=== PATIENT | male | born 1965 | race Caucasian/White ===

== ENCOUNTER 2017-02-24 14:49 | Emergency (ER) | payer OTHER ==
[2017-02-24 15:14] VITALS: BP 137/83
--- NOTE | 2017-02-24 15:25 | UC ---
Back Pain HPI - HPI Summary HPI Summary: 52 year old male complains of right back pain secondary to a 10 foot fall from a ladder. I will send him to the ER. - History of Current Complaint Chief Complaint: UCBackPain Stated Complaint: BACK INJURY FROM FALL Time Seen by Provider: 02/24/17 15:18 - Allergies/Home Medications Allergies/Adverse Reactions: Allergies Allergy/AdvReac Type Severity Reaction Status Date / Time No Known Allergies Allergy Verified 02/24/17 16:09 PMH/Surg Hx/FS Hx/Imm Hx Previously Healthy: Yes - Surgical History Surgical History: None - Family History Known Family History: Positive: None - Social History Alcohol Use: None Substance Use Type: None Smoking Status (MU): Never Smoked Tobacco Review of Systems Constitutional: Negative Skin: Other - RIGHT LOWER BACK ECCYMOSIS Eyes: Negative ENT: Negative Respiratory: Negative Cardiovascular: Negative Gastrointestinal: Negative Genitourinary: Negative Motor: Negative Neurovascular: Negative Musculoskeletal: Myalgia, Other: - RIGHT LOWER BACK PAIN Neurological: Negative Psychological: Negative All Other Systems Reviewed And Are Negative: Yes Physical Exam Triage Information Reviewed: Yes Vital Signs: Initial Vital Signs Temp 36.8 C 02/24/17 15:10 Pulse 102 02/24/17 15:10 Resp 18 02/24/17 15:10 BP 137/83 02/24/17 15:10 Pulse Ox 99 02/24/17 15:10 Eye Exam: Normal ENT Exam: Normal Dental Exam: Normal Neck exam: Normal Neck: Positive: 1 Respiratory Exam: Normal Cardiovascular Exam: Normal Abdominal Exam: Normal Musculoskeletal: Positive: Other: - RIGHT LOWER BACK PAIN Neurological Exam: Normal Psychological Exam: Normal Skin: Positive: Other - RIGHT LOWER BACK ECCYMOSIS Back Pain Course/Dx - Differential Dx/Diagnosis Provider Diagnoses: UPPER BACK SPASM Discharge - Discharge Plan Condition: Stable Disposition: AGAINST MEDICAL ADVICE Patient Education Materials: Low Back Strain (ED) Referrals: Nivia Mariee MD [Medical Doctor] -
== END 2017-02-24 15:35 | disposition left against medical advice (07) ==
LOC: UCEAST 14:49
DX: M54.9 Dorsalgia, unspecified (principal); W11.XXXA Fall on and from ladder, initial encounter; Y93.9 Activity, unspecified; Y92.9 Unspecified place or not applicable; Y99.9 Unspecified external cause status
CPT/HCPCS: 99212; G0463

== ENCOUNTER 2017-02-24 15:57 | Emergency (ER) | payer OTHER ==
[2017-02-24] MEDS ORDERED: Ibuprofen TAB* 600 MG PO ONE (18:05)
--- NOTE | 2017-02-24 19:27 | RAD ---
INDICATION: Back and pelvic pain after falling 10 feet off of a ladder. COMPARISON: None. TECHNIQUE: Noncontrast CT examination of the thoracic spine, lumbar spine and pelvis. Axial images were acquired and sagittal and coronal reformats were created and independently analyzed. FINDINGS: There are multilevel degenerative changes of the thoracic spine including loss of intervertebral disc height. No definite vertebral body compression fracture is identified. The spinous processes are intact. There is a slightly displaced fracture involving the right T12 rib (axial image 135 and sagittal image 24). There are displaced fractures of the right L2 (axial image 32), L3 (axial image 46) and L4 (axial image 59) transverse processes. The vertebral bodies are otherwise intact. Mild degenerative changes of the lumbar spine also include loss of intervertebral disc height. There is no hyperdense material in the thecal canal to indicate acute injury thecal hemorrhage. The sacrum is intact. The bones of the pelvis are intact. The SI joints are appropriately preserved. The bones of the hips are intact. The visualized soft tissues including portions of the small and large bowel are grossly normal. There is no hyperdense free intraperitoneal fluid or retroperitoneal fluid to indicate solid organ laceration or retroperitoneal hematoma, respectively. Incidentally noted are vessel ectomy clips. IMPRESSION: 1. There are acute minimally displaced fractures involving the right 12th rib and the right lateral processes of L2, L3 and L4. The vertebral bodies otherwise appear to be intact. 2. No displaced fracture involving the pelvis or hips. 3. There is no hyperdense free fluid in the peritoneal cavity or hyperdense fluid in the retroperitoneum to indicate acute solid organ injury or retroperitoneal hematoma, respectively.
[2017-02-24] MEDS ORDERED: Dexamethasone IV* 4 MG/ML 1 ML (4 MG) IV SLOW PU ONE (19:52)
[2017-02-24] MEDS ORDERED: Orphenadrine Citrate IV* 30 MG/ML 2 ML VIAL IV ONE (19:52)
--- NOTE | 2017-02-24 20:00 | ED ---
Adult Trauma - HPI Summary HPI Summary: 52 male presents from with complaints of lower back pain after sustaining a fall approximately 10 feet from a ladder around 2 pm this afternoon. Patient states he landed on the ladder that fell out from underneath him more on his right side of his back. Denies hitting his head or LOC. No extremity injuries or pain. Denies neck pain. Only complaint is lower back pain. Has not taken any medications other than the ibuprofen given to him at ED. Patient denies lacerations however admits to some abrasion on right lower back and right arm. No nausea, vomiting, visual changes, chest pain, difficulty breathing, abdominal pain or headache. Was ambulatory at scene. Describes lower back pain as pressure and stiff with a dull ache. Hurts more with movement of changing positions. Able to bear weight and walk. Denies saddle anesthesia, numbness/ tingling, weakness and bladder/bowel incontinence. No medical problems other than migraines in which he takes amitryptyline for. - History of Current Complaint Hx Obtained From: Patient Mechanism of Injury: Fall - from 10 feet, off ladder Ambulatory at the Scene: Yes Loss of Consciousness: no loss of consciousness Force: Medium Onset/Duration: Started Hours Ago, Traumatic, Still Present Onset of Pain: Immediate Onset Severity: Moderate Current Severity: Moderate Pain Intensity: 4 Pain Scale Used: 0-10 Numeric Location: Back - lower, more on right side Character: Aching, Pressure Aggravating Factor(s): Movement Alleviating Factor(s): Rest Associated Signs & Symptoms: Positive: Negative <Adia Aburto - Last Filed: 02/25/17 00:27> <Vannessa Benitez - Last Filed: 02/26/17 08:03> - History of Current Complaint Chief Complaint: EDBackInjuryPain Stated Complaint: BACK INJURY Time Seen by Provider: 02/24/17 18:56 - Allergy/Home Medications Allergies/Adverse Reactions: Allergies Allergy/AdvReac Type Severity Reaction Status Date / Time No Known Allergies Allergy Verified 02/24/17 16:09 PMH/Surg Hx/FS Hx/Imm Hx Endocrine/Hematology History: Denies: Hx Diabetes, Hx Thyroid Disease Cardiovascular History: Denies: Hx Hypertension Respiratory History: Denies: Hx Asthma, Hx Chronic Obstructive Pulmonary Disease (COPD) GI History: Denies: Hx Ulcer Neurological History: Reports: Hx Migraine - Surgical History Surgery Procedure, Year, and Place: n/a - Immunization History Immunizations Up to Date: Yes Infectious Disease History: No Infectious Disease History: Denies: Hx Hepatitis, Hx Human Immunodeficiency Virus (HIV), Traveled Outside the [place] in Last 30 Days - Family History Known Family History: Positive: None - Social History Alcohol Use: None Substance Use Type: Reports: None Smoking Status (MU): Never Smoked Tobacco <ShirinradhaMariannaAdia - Last Filed: 02/25/17 00:27> Review of Systems Constitutional: Negative Eyes: Negative ENT: Negative Cardiovascular: Negative Respiratory: Negative Gastrointestinal: Negative Positive: Arthralgia, Myalgia - lower back Positive: Other - abrasions Neurological: Negative All Other Systems Reviewed And Are Negative: Yes <Marianna Aburtosa - Last Filed: 02/25/17 00:27> Physical Exam Triage Information Reviewed: Yes Vital Signs On Initial Exam: Initial Vitals Temp Pulse Resp BP Pulse Ox 98.4 F 95 16 107/84 96 02/24/17 16:10 02/24/17 16:10 02/24/17 16:10 02/24/17 16:10 02/24/17 16:10 Vital Signs Reviewed: Yes Appearance: Positive: Well-Appearing, Pain Distress - mild with movement Skin: Positive: Warm, Skin Color Reflects Adequate Perfusion, Dry, Other - minor abrasions to right lower back/flank and right forearm, no FB, no bleeding. Negative: Cold, Numb, Cyanosis @, Pale, Erythema @ Head/Face: Positive: Normal Head/Face Inspection. Negative: Temporal Artery Tenderness, TMJ Tenderness, Cephalohematoma Eyes: Positive: Normal, EOMI, GROVER, Conjunctiva Clear ENT: Positive: Normal ENT inspection, Hearing grossly normal, Pharynx normal, TMs normal, Other - did not bite tongue, no racoon eyes, battles signs or facial bony tenderness. Negative: Nasal congestion, Nasal drainage, Tonsillar swelling Dental: Negative: Percussion Tenderness @, Dental Fracture @ Neck: Positive: Supple, Nontender, No Lymphadenopathy Respiratory/Lung Sounds: Positive: Clear to Auscultation, Breath Sounds Present , Other - no pain with deep inhalation. Negative: Rales, Rhonchi, Wheezes Cardiovascular: Positive: Normal, RRR, Pulses are Symmetrical in both Upper and Lower Extremities - 2+ radial and pedal. Negative: Murmur, Rub, Leg Edema Left , Leg Edema Right Abdomen Description: Positive: Nontender, No Organomegaly, Soft, Other: - no bruising. Negative: Bruit, CVA Tenderness (R), CVA Tenderness (L), Distended, Guarding, Peritoneal Signs, Pulsatile Mass Bowel Sounds: Positive: Present Musculoskeletal: Positive: Normal, Strength/ROM Intact, Pain @ - on palpation of L1-L6 of lower back, Other - no pain on palpation of extremities, clavicle, cervical, hips. no obvious signs of deformity or crepitus, step off. no ecchymosis or edema. Negative: Limited @, Interruption @, Edema Left, Edema Right Neurological: Positive: Normal - memory and concentration intact, Sensory/Motor Intact - sensation intact, Alert, Oriented to Person Place, Time, CN Intact II- III, Reflexes Intact, NV Bundle Intact Distally, Normal Gait, Finger to Nose - normal, Facial Symmetry, Speech Normal Psychiatric: Positive: Affect/Mood Appropriate - [place] Coma Scale Best Eye Response: 4 - Spontaneous Best Motor Response: 6 - Obeys Commands Best Verbal Response: 5 - Oriented <Adia Aburto - Last Filed: 02/25/17 00:27> Vital Signs On Initial Exam: Initial Vitals Temp Pulse Resp BP Pulse Ox 98.4 F 95 16 107/84 96 02/24/17 16:10 02/24/17 16:10 02/24/17 16:10 02/24/17 16:10 02/24/17 16:10 <Vannessa Benitez - Last Filed: 02/26/17 08:03> Diagnostics - Vital Signs Vital Signs Temp Pulse Resp BP Pulse Ox 02/24/17 17:52 97.3 F 95 16 107/84 98 02/24/17 16:10 98.4 F 95 16 107/84 96 - Laboratory Result Diagrams: 02/24/17 21:10 02/24/17 22:12 Lab Statement: Any lab studies that have been ordered have been reviewed, and results considered in the medical decision making process. - CT lumbar, thoracis, pelvis CT Interpretation: Positive (See Comments) - 1. There are acute minimally displaced fractures involving the right 12th rib and the right lateral processes of L2, L3 and L4. The vertebral bodies otherwise appear to be intact. 2. No displaced fracture involving the pelvis or hips. 3. There is no hyperdense free fluid in the peritoneal cavity or hyperdense fluid in the retroperitoneum to indicate acute solid organ injury or retroperitoneal hematoma , respectively. cervical CT Interpretation: No Acute Changes - no fracture. CT Interpretation Completed By: Radiologist chest/abd/pelvis CT Interpretation: No Acute Changes - fractures of the right 12th rib and right second, third and fourth transverse processses of lumbar spine without paraspinal hematoma. no visceral injury in chest abdomen or pelvis. fatty liver. CT Interpretation Completed By: Radiologist <Adia Aburto - Last Filed: 02/25/17 00:27> - Vital Signs Vital Signs Temp Pulse Resp BP Pulse Ox 02/25/17 01:18 98.6 F 91 16 128/80 100 02/24/17 23:39 98.8 F 90 18 130/75 97 02/24/17 17:52 97.3 F 95 16 107/84 98 02/24/17 16:10 98.4 F 95 16 107/84 96 - Laboratory Lab Results: Lab Results 02/24/17 02/24/17 02/24/17 Range/Units 21:10 21:10 22:12 WBC 10.3 (3.5-10.8) 10^3/ul RBC 5.15 (4.0-5.4) 10^6/ul Hgb 14.8 (14.0-18.0) g/dl Hct 45 (42-52) % MCV 88 (80-94) fL MCH 29 (27-31) pg MCHC 33 (31-36) g/dl RDW 14 (10.5-15) % Plt Count 169 (150-450) 10^3/ul MPV 9 (7.4-10.4) um3 Neut % (Auto) 72.3 (38-83) % Lymph % (Auto) 20.3 L (25-47) % [place] % (Auto) 6.2 (1-9) % Eos % (Auto) 0.7 (0-6) % Baso % (Auto) 0.5 (0-2) % Absolute Neuts (auto) 7.4 (1.5-7.7) 10^3/ul Absolute Lymphs (auto) 2.1 (1.0-4.8) 10^3/ul Absolute Monos (auto) 0.6 (0-0.8) 10^3/ul Absolute Eos (auto) 0.1 (0-0.6) 10^3/ul Absolute Basos (auto) 0.1 (0-0.2) 10^3/ul Absolute Nucleated RBC 0 10^3/ul Nucleated RBC % 0 Sodium 133 (133-145) mmol/L Potassium TNP 3.8 Chloride 102 (101-111) mmol/L Carbon Dioxide 25 (22-32) mmol/L Anion Gap 6 (2-11) mmol/L BUN 19 (6-24) mg/dL Creatinine 1.20 H (0.67-1.17) mg/dL Est GFR ( Amer) 82.1 (>60) Est GFR (Non-Af Amer) 63.8 (>60) BUN/Creatinine Ratio 15.8 (8-20) Glucose 100 (70-100) mg/dL Calcium 9.3 (8.6-10.3) mg/dL Total Bilirubin 1.20 H (0.2-1.0) mg/dL AST TNP 37 ALT 57 H (7-52) U/L Alkaline Phosphatase 60 (34-104) U/L Total Protein 7.4 (6.4-8.9) g/dL Albumin 4.5 (3.2-5.2) g/dL Globulin 2.9 (2-4) g/dL Albumin/Globulin Ratio 1.6 (1-3) Result Diagrams: 02/24/17 21:10 02/24/17 22:12 Lab Statement: Any lab studies that have been ordered have been reviewed, and results considered in the medical decision making process. <Vannessa Benitez - Last Filed: 02/26/17 08:03> Re-Evaluation - Re-Evaluation First Eval Re-Evaluation Time: 21:06 Change: Improved - had some relief after medications, awaiting CT of abd/chest/ pelvis. aware of current lab results and plan Second Eval Re-Evaluation Time: 22:40 Change: Unchanged Comment: patient still feeling good. IV access was difficult and the reason for his long stay for the IV contrast CT. Updated on rest of stay. <Adia Aburto - Last Filed: 02/25/17 00:27> Adult Trauma Course/Dx - Course Course Of Treatment: labs obtained. given ibuprofen, norflex and dexamethasone for pain, stiffness and inflammation. CT of lumbar and thoracic spine, chest, abd, pelvis obtained due to RAMESH and traumatic findings. Did not hit head and no LOC. No neurologic deficits noted. Lumbar transverse process fractures L2 L3 L4 and 12th rib fracture noted. Attempted to find brace however do not have access. Spoke with Dr Moser and trauma ER at [facility] with Dr Escudero who stated no other work up or treatment changes. Follow up neurosurgery. Given pain management to take at home, rest, ice. No need for spirometer due to patient not having difficulty taking deep inspirations. Aware of worsening signs and symptoms. Refrain from physical activity. Follow up PCP. - Diagnoses Differential Diagnosis/HQI/PQRI: Positive: Abrasion(s), Contusion(s), Fracture, Dislocation, Hematoma(s), Laceration(s), Sprain, Strain - Physician Notifications Discussed Care Of Patient With: Dr Escudero, [facility] Time Discussed With Above Provider: 00:00 Instructed by Provider To: Have Pt Call For Appt. - with neurosurgery <Adia Aburto - Last Filed: 02/25/17 00:27> <Vannessa Benitez - Last Filed: 02/26/17 08:03> - Diagnoses Provider Diagnoses: Fracture of transverse process of lumbar vertebra, Right rib fracture Discharge <dAia Aburto - Last Filed: 02/25/17 00:27> <Vannessa Benitez - Last Filed: 02/26/17 08:03> - Discharge Plan Condition: Stable Disposition: HOME Prescriptions: oxyCODONE/Acetamin 5/325 MG* [Percocet 5/325 TAB*] 1 tab PO Q4H PRN #30 tab MDD 4 PRN Reason: Pain Patient Education Materials: Thoracolumbar Fracture (ED), Rib Fracture (ED) Referrals: Elsy Capone MD [Primary Care Provider] - Papa Hunt MD [Medical Doctor] - Additional Instructions: Take prescribed medication as directed. In between doses you may bridge with naproxen 250mg (400mg if pain is un-tolerable). Ice and rest. Be conscious of your fractures. Refrain from strenuous activity and exercise. Follow up and make an appointment with resume specialist. If new symptoms develop such as numbness/tingling, weakness, bladder/bowel incontinence or worsening symptoms please seek medical attention immediately. Attestation Statement User Type: Provider - I was available for consult. This patient was seen by the [facility]. The patient was not presented to, seen by, or examined by me. -Mauri <Vannessa Benitez - Last Filed: 02/26/17 08:03>
[2017-02-24 21:34] LABS: ALT 57 U/L (7-52); Albumin 4.5 g/dL (3.2-5.2); Alkaline Phosphatase 60 U/L (34-104); BUN/Creatinine Ratio 15.8 (8-20); Blood Urea Nitrogen 19 mg/dL (6-24); CO2 Carbon Dioxide 25 mmol/L (22-32); Calcium 9.3 mg/dL (8.6-10.3); Chloride 102 mmol/L (101-111); EGFR African American 82.1 (>60); EGFR Non-African American 63.8 (>60); Globulin 2.9 g/dL (2-4); Glucose 100 mg/dL (70-100); Hematocrit 45 % (42-52); Hemoglobin 14.8 g/dl (14.0-18.0); Mean Corpuscular HGB Conc 33 g/dl (31-36); Mean Corpuscular Hemoglobin 29 pg (27-31); Mean Corpuscular Volume 88 fL (80-94); Mean Platelet Volume 9 um3 (7.4-10.4); Red Blood Count 5.15 10^6/ul (4.0-5.4); Red Cell Distribution Width 14 % (10.5-15); Sodium 133 mmol/L (133-145); Total Protein 7.4 g/dL (6.4-8.9); White Blood Count 10.3 10^3/ul (3.5-10.8)
[2017-02-24 21:39] LABS: Anion Gap 6 mmol/L (2-11)
[2017-02-24] MEDS ORDERED: Iohexol 300* (CONTRAST) 10 ML SDV IV ONE (22:34)
[2017-02-25] MEDS ORDERED: HYDROcodone/ACETAMIN 5-325 MG* 1 TAB PO ONE (00:13)
[2017-02-25 01:18] VITALS: BP 128/80
--- NOTE | 2017-02-25 12:17 | RAD ---
INDICATION: Neck pain after falling approximately 10 feet from a ladder COMPARISON: None. TECHNIQUE: Axial source images were acquired with coronal and sagittal reformatting. FINDINGS: The cervical vertebrae are normally aligned. There is no fracture or focal bony lesion. The canal and foramina appear widely patent. The odontoid and the atlantodental interval are normal. The prevertebral soft tissues appear normal. Degenerative changes of the cervical spine include loss of intervertebral disc height and mild marginal osteophyte formation. The most severe degenerative changes are noted at C5/C6 where there is a small degree of vacuum disc phenomenon. The visualized soft tissue elements of the neck are normal. The visualized lung apices are clear. IMPRESSION: NO ACUTE FRACTURE OR DISLOCATION.
--- NOTE | 2017-02-25 12:24 | RAD ---
INDICATION: Back pain after an approximate 10 foot fall off of a ladder COMPARISON: CT of the knee and L-spine acquired of the same date at approximately 1842 hours that revealed minimally displaced fractures of the right 12th rib and the transverse processes of L2, L3 and L4. TECHNIQUE: Multidetector CT images were obtained from the lung apices to the ischial tuberosities with 136 mL on the patent 300 IV and oral contrast. CHEST: The lungs exhibit diffuse centrilobular emphysematous changes.The lungs are grossly clear without nodules, masses or other focal abnormality. There are no significant pleural effusions bilaterally. The heart and thoracic aorta are normal in size and morphology. There is no mediastinal or hilar lymphadenopathy. ABDOMEN \T\ PELVIS: The liver is homogenously hypodense and is top normal measuring 20 cm in greatest cephalocaudal dimension. The homogenously attenuating spleen is top normal measuring 12.5 cm in greatest axial dimension. The pancreas and adrenal glands are grossly normal in appearance. The gallbladder is normal. The kidneys are normal in appearance without focal mass, calcification or signs of hydronephrosis. The small and large bowel are not distended. There is no gross retroperitoneal or mesenteric lymphadenopathy. The pelvic viscera is normal in appearance. Vasectomy surgical clips are noted. The abdominal aorta and iliac arteries are normal in course and diameter. As were identified on the previous CT examination there are minimally displaced fractures involving the right posterior 12th rib and the lateral processes of L2, L3 and L4. The remaining visualized bones are intact and appropriately aligned. IMPRESSION: 1. As was previously described on prior CT imaging, there are nondisplaced fractures involving the right posterior 12th rib and the lateral processes of L2, L3 and L4 and there are no signs of traumatic solid organ injury or retroperitoneal hematoma. 2. Likely hepatic steatosis with a mild degree of hepatosplenomegaly.
== END 2017-02-25 01:18 | disposition home or self-care (01) ==
LOC: ED 15:57
DX: S32.009A Unspecified fracture of unspecified lumbar vertebra, initial encounter for closed fracture (principal); S22.31XA Fracture of one rib, right side, initial encounter for closed fracture; M54.5 Low back pain; W11.XXXA Fall on and from ladder, initial encounter; Y93.9 Activity, unspecified; Y92.9 Unspecified place or not applicable
CPT/HCPCS: 36415; 71260; 72125; 72128; 72131; 72192; 74177; 80053; 85025; 99283; A9270-GY; J1100; J2360; Q9967

== ENCOUNTER 2017-05-15 13:57 | Emergency (ER) | payer OTHER ==
[2017-05-15 14:04] VITALS: BP 124/78
--- NOTE | 2017-05-15 14:47 | UC ---
Throat Pain/Nasal Devan HPI - HPI Summary HPI Summary: 52 year old male presents with complains of flu like symptoms post tick bite. - History of Current Complaint Chief Complaint: UCGeneralIllness Stated Complaint: FLU SYMPTOMS Time Seen by Provider: 05/15/17 14:41 Hx Obtained From: Patient Onset/Duration: Sudden Onset Severity: Moderate Pain Scale Used: 0-10 Numeric - 4 - Allergies/Home Medications Allergies/Adverse Reactions: Allergies Allergy/AdvReac Type Severity Reaction Status Date / Time No Known Allergies Allergy Verified 05/15/17 14:04 PMH/Surg Hx/FS Hx/Imm Hx Previously Healthy: Yes - Surgical History Surgical History: None Surgery Procedure, Year, and Place: n/a - Family History Known Family History: Positive: None - Social History Alcohol Use: None Substance Use Type: None Smoking Status (MU): Never Smoked Tobacco - Immunization History Most Recent Influenza Vaccination: none Review of Systems Constitutional: Fever, Chills, Fatigue Skin: Negative Eyes: Negative ENT: Negative Respiratory: Negative Cardiovascular: Negative Gastrointestinal: Negative Genitourinary: Negative Motor: Negative Neurovascular: Negative Musculoskeletal: Negative Neurological: Negative Psychological: Negative All Other Systems Reviewed And Are Negative: Yes Physical Exam Triage Information Reviewed: Yes Vital Signs: Initial Vital Signs Temp 36.8 C 05/15/17 13:59 Pulse 89 05/15/17 13:59 Resp 16 05/15/17 13:59 BP 124/78 05/15/17 13:59 Pulse Ox 100 05/15/17 13:59 Vital Signs Reviewed: Yes Eye Exam: Normal ENT Exam: Normal Dental Exam: Normal Neck exam: Normal Neck: Positive: 1 Respiratory Exam: Normal Cardiovascular Exam: Normal Abdominal Exam: Normal Musculoskeletal Exam: Normal Neurological Exam: Normal Psychological Exam: Normal Skin Exam: Normal Throat Pain/Nasal Course/Dx - Differential Dx/Diagnosis Provider Diagnoses: fever. tick bite. flu like symptoms Discharge - Discharge Plan Condition: Stable Disposition: HOME Patient Education Materials: Lyme Disease (ED), Tick Bite (ED) Referrals: Elsy Capone MD [Primary Care Provider] -
[2017-05-15] MEDS ORDERED: DOXYcycline CAP(*) 100 MG PO ONE (14:48)
[2017-05-15 18:27] LABS: Hematocrit 41 % (42-52); Hemoglobin 14.1 g/dl (14.0-18.0); Mean Corpuscular HGB Conc 35 g/dl (31-36); Mean Corpuscular Hemoglobin 29 pg (27-31); Mean Corpuscular Volume 85 fL (80-94); Mean Platelet Volume 9 um3 (7.4-10.4); Red Blood Count 4.79 10^6/ul (4.0-5.4); Red Cell Distribution Width 13 % (10.5-15); White Blood Count 4.4 10^3/ul (3.5-10.8)
[2017-05-15 18:40] LABS: BUN/Creatinine Ratio 13.5 (8-20); Calcium 8.8 mg/dL (8.6-10.3); EGFR African American 96.8 (>60); EGFR Non-African American 75.3 (>60); Globulin 2.6 g/dL (2-4); Potassium 4.5 mmol/L (3.5-5.0); Total Bilirubin 1.1 mg/dL (0.2-1.0); Total Protein 6.6 g/dL (6.4-8.9)
--- NOTE | 2017-05-16 11:16 | UC ---
Progress - Progress Note Progress Note: PLS CALL PT. LFTS ELEVATED. NEEDS FOLLOW-UP PCP. - BABS PLEITEZ MD
[2017-05-18 15:12] LABS: Lyme Disease IgG Ab WB Negative (Negative)
--- NOTE | 2017-05-18 19:50 | UC ---
Progress - Progress Note Progress Note: PLS CALL PT. LFTS ELEVATED. NEEDS FOLLOW-UP PCP. - BABS PELITEZ MD please call this pt and let him know test for lyme dz positive. doxy 100mg po bid x 21 days sent. pt should f/u with pcp this coming week. encourage probiotics.
== END 2017-05-15 14:59 | disposition home or self-care (01) ==
LOC: UCEAST 13:57
DX: T14.8XXA Other injury of unspecified body region, initial encounter (principal); R50.9 Fever, unspecified; W57.XXXA Bitten or stung by nonvenomous insect and other nonvenomous arthropods, initial encounter; Y92.9 Unspecified place or not applicable
CPT/HCPCS: 36415; 80053; 85025; 86617; 86618; 87502; 99212; A9270-GY; G0463

== ENCOUNTER 2019-02-06 18:55 | Emergency (ER) | payer OTHER ==
[2019-02-06 19:27] VITALS: BP 133/79
--- NOTE | 2019-02-06 20:00 | UC ---
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 Drainge noted ~ 2 days ago, noted "boil:" area, lanced, pus drained. no improvement since 2 weeks, no difficulty walking, no h/o DM/ poor wound healing. - History of Current Complaint Chief Complaint: UCLowerExtremity Time Seen by Provider: 02/06/19 19:42 Stated Complaint: INFECTED TOENAIL Hx Obtained From: Patient Onset/Duration: Sudden Onset, Lasting Weeks - 2 weeks Skin Exposure Onset/Duration: Weeks Ago Timing: Constant Onset Severity: Mild Current Severity: Mild Pain Intensity: 1 Pain Scale Used: 0-10 Numeric Location: Discrete - right great toe - Allergy/Home Medications Allergies/Adverse Reactions: Allergies Allergy/AdvReac Type Severity Reaction Status Date / Time No Known Allergies Allergy Verified 02/06/19 19:28 PMH/Surg Hx/FS Hx/Imm Hx Previously Healthy: Yes - h/o MRSA - Surgical History Surgical History: None Surgery Procedure, Year, and Place: n/a - Family History Known Family History: Positive: None, Non-Contributory - Social History Alcohol Use: None Substance Use Type: None Smoking Status (MU): Never Smoked Tobacco - Immunization History Most Recent Influenza Vaccination: none Review of Systems All Other Systems Reviewed And Are Negative: Yes Constitutional: Positive: Negative Skin: Positive: Other - redness, drainage Musculoskeletal: Positive: Negative Neurological: Positive: Negative Psychological: Positive: Negative Is Patient Immunocompromised?: No Physical Exam Triage Information Reviewed: Yes Appearance: Well-Appearing, No Pain Distress, Well-Nourished Vital Signs: Initial Vital Signs Temp 98.3 F 02/06/19 19:25 Pulse 90 02/06/19 19:25 Resp 18 02/06/19 19:25 BP 133/79 02/06/19 19:25 Pulse Ox 98 02/06/19 19:25 Vital Signs Reviewed: Yes Eyes: Positive: Conjunctiva Clear Musculoskeletal: Positive: Strength Intact - L great toe, ROM Intact - L great toe, No Edema. Negative: Strength Limited @, ROM Limited @, Edema @ Neurological Exam: Normal Neurological: Positive: Alert Psychological Exam: Normal Skin: Positive: Other - moderate erythema surrounding lateral nailbed on L great toe, minimal serous drainage ntoed, no fluctuance, no streaking. FUll ROM , no MCP, DIP pain with palpation or resisted movement. cap refill < 2 DP/ PT pulses 2+, full ankle ROM, no TTP over rest of foot Course/Dx - Differential Diagnoses - Skin Complaint Differential Diagnoses: Abscess, Cellulitis, Eczema - Diagnoses Provider Diagnosis: Cellulitis of toe, left Discharge - Sign-Out/Discharge Documenting (check all that apply): Patient Departure All imaging exams completed and their final reports reviewed: No Studies - Discharge Plan Condition: Good Disposition: HOME Prescriptions: Sulfamethox/Trimethoprim DS* [Bactrim DS 800/160 TAB*] 1 tab PO BID #20 tab Patient Education Materials: Cellulitis (DC) Referrals: Elsy Capone MD [Primary Care Provider] - (Follow up in 5-7 days if no improvement ) Additional Instructions: - ANtibiotics as directed - REturn with worsening symptoms, decreased movement, spreading of redness, increased drainage - Warm water soaks 2 times daily - Billing Disposition and Condition Condition: GOOD Disposition: Home
== END 2019-02-06 20:00 | disposition home or self-care (01) ==
LOC: UCEAST 18:55
DX: L03.032 Cellulitis of left toe (principal); Z86.14 Personal history of Methicillin resistant Staphylococcus aureus infection
CPT/HCPCS: 99212; G0463